=== PATIENT | female | born 2000 | race Caucasian/White ===

== ENCOUNTER 2022-11-10 01:42 | Emergency (ER) | payer OTHER ==
[~2022-11-10] VITALS: Ht 162.6 cm; Wt 51.3 kg
[2022-11-10] MEDS ORDERED: 0.9%NACL 1000ML 1,000 ML IV ONE (02:00)
[2022-11-10] MEDS ORDERED: SOLU-MEDROL 125MG VIAL IVP ONE (02:00)
[2022-11-10] MEDS ORDERED: IPRATROPIUM/ALBUTEROL SULFATE 3 ML SOLUTION IH ONE (02:00)
[2022-11-10] MEDS ORDERED: SOLU-MEDROL 40MG VIAL ONE (02:03)
[2022-11-10] MEDS ORDERED: SOLU-MEDROL 40MG VIAL IVP ONE (02:30)
[2022-11-10] MEDS ORDERED: ONDANSETRON 4MG INJ ONE (02:52)
[2022-11-10] MEDS ORDERED: ONDANSETRON 4MG INJ IVP ONE (03:00)
[2022-11-10 03:19] VITALS: BP 102/61
[2022-11-10] MEDS ORDERED: ALBUHFA IH (03:55)
[2022-11-10] MEDS ORDERED: AUD IH (03:55)
[2022-11-10] MEDS ORDERED: CETI10CA5 PO (03:55)
== END 2022-11-10 04:23 | disposition home or self-care (01) ==
LOC: EDH 01:42
DX: J45.901 Unspecified asthma with (acute) exacerbation (principal); Z79.52 Long term (current) use of systemic steroids
CPT/HCPCS: 99284; 96374; 71045; 96375; 81025; 94640; J7030; J2405; J2920